=== PATIENT | female | born 2000 | race Two or more races ===

== ENCOUNTER 2023-04-30 18:50 | Emergency (ER) | payer OTHER ==
[~2023-04-30] VITALS: Ht 261.6 cm; Wt 52.6 kg
== END 2023-04-30 21:52 | disposition home or self-care (01) ==
LOC: ER 18:50
DX: R53.81 Other malaise (principal); J06.9 Acute upper respiratory infection, unspecified; Z20.822 Contact with and (suspected) exposure to COVID-19